=== PATIENT | female | born 1955 | race Hispanic/Latino ===

== ENCOUNTER → 2020-04-02 | Day surgery (SDC) | payer OTHER ==
[2020-03-28 10:08] LABS: BASOPHILS % 0.7 % (0.0-1.0); EOSINOPHILS # (AUTO) 0.1 (0.0-0.4); EOSINOPHILS % 1.7 % (0.0-6.0); HEMATOCRIT 44.9 % (34.2-44.1); HEMOGLOBIN 14.2 g/dL (12.0-16.0); LYMPHOCYTES # (AUTO) 1.8 (1.0-3.2); LYMPHOCYTES % 32.7 % (18.0-39.1); MEAN CORPUSCULAR HEMOGLOBIN 28.1 pg (28-32); MEAN CORPUSCULAR HGB CONC 31.6 g/dL (31-35); MEAN CORPUSCULAR VOLUME 88.7 fL (81-99); MONOCYTES # (AUTO) 0.3 (0.2-0.8); MONOCYTES % 5.9 % (4.4-11.3); NEUTROPHILS # (AUTO) 3.2 (2.1-6.9); NEUTROPHILS % 58.8 % (38.7-80.0); PLATELET COUNT 235 x10e3/uL (140-360); RED BLOOD COUNT 5.06 x10e6/uL (3.6-5.1); RED CELL DISTRIBUTION WIDTH 13.3 % (11.7-14.4)
[~2020-04-02] MED LIST: ACETAMINOPHEN 1000 MG/100 ML 100 ML IV ONE; ALENDRONATE SOD35 MG PO; CEFAZOLIN SOD 1 GM/NS 50ML 100 ML IV ONE; CRESTOR10 MG PO; DEXAMETHASONE SOD PHOS INJ 4 MG/ML VIAL ONE; EPINEPHRINE 1 MG/ML 30ML VIAL ONE; FENTANYL CITRATE/PF 100MCG/2 ML INJ ONE; FLUTICASONE P15.8 ML; HYDROCODONE/APAP 5MG-325MG TAB ONE; KETOROLAC TROMETHAMINE 30 MG/ML VIAL ONE; LEVOCETIRIZINE D5 MG PO; LIDOCAINE HCL 2% LOCAL INJ 5 ML SDV VIAL INJ ONE; MONTELUKAST SOD10 MG PO; ONDANSETRON HCL INJ 2MG/ML 2ML 2 MG/ML VIAL ONE; PROPOFOL IV EMULSION 10 MG/ML 20 ML VIAL ONE; ROCURONIUM BROMIDE 10 MG/ML 5ML VIAL IV ONE; SEVOFLURANE INHAL SOLN 250 ML PEN BTL ONE
[2020-04-02 11:25] VITALS: BP 123/56
--- NOTE | 2020-04-02 20:00 | Operative Report ---
DATE OF PROCEDURE: 04/02/2020 SURGEON: HARSHIL LORENZO MD PLACE OF SURGERY: [facility]. HISTORY: This is a 64-year-old female with ongoing complaints of pain of her right shoulder secondary to underlying right shoulder rotator cuff and labral symptoms along with shoulder impingement. The patient wished to forgo any further conservative treatment and proceed on with a right shoulder arthroscopy. The risks and benefits of surgery have been outlined to her in the Orthopedic Clinic as well as again prior to her surgery in the preoperative holding area consisting, but not limited to the following infection, blood loss, nerve, blood vessel, tendon injury, DVT, ongoing pain, stiffness. The patient's right shoulder was marked by myself and she agreed. The patient was then given a regional block per anesthesia and then brought back to the operative suite. A time-out was taken for Ms. Mylene Perez for diagnostic arthroscopy of her right shoulder. All were in agreement including nursing staff, anesthesia and myself. The patient was then given a successful general intubation anesthetic and then transferred over to the operative table. The patient was then placed in the beach chair position with the patient's cervical neck and intubation tube were secured. The right shoulder was then sterilely prepped and draped in the usual sterile fashion. The shoulder was inflated with 30 mL of sterile saline. A posterior portal was made using a 15 Bard-Elio blade and blunt trocar was inserted, and the camera was inserted. Upon examination of the anterior compartment, the biceps tendon was found to be intact. However, she did have some marked underlying synovitis throughout the entire compartment as well as the biceps labral anchor attachment. An anterior working portal was made localizing the anterior portal using an 18-gauge needle. Trocar was inserted. Upon which time, the villonodular synovitis was then resected and removed using an Arthrex 4.0 shaver. The labrum had type 1 fraying along the peripheral edges as well as along the inferior aspect and the labral debridement was carried out, taken all the way down to a smooth contoured surface using the Arthrex shaver as well as arthroscopic Arthrex wand probe. Upon probing, the labrum was found to be intact and stable. The rotator cuff tear was identified. It was close to junction of the rotator cuff insertion with minimal retraction. The tear was debrided. Examination of the subacromial space shows some marked impingement with arthrosis of the AC joint with marked narrowing of the subacromial space. A lateral portal was made and an arthroscopic subacromial decompression was carried out using the 4.0 shaver and a bur through both the posterior and lateral portal and an arthroscopic acromioplasty, i.e., cervical decompression was completed. Attention was then turned to the distal clavicle and degenerative AC meniscus. An arthroscopic distal clavicle resection was carried out removing approximately 1 cm of the distal clavicle in conjunction with degenerative meniscus using the 4.0 shaver and bur and Arthrex wand. The underlying villonodular synovitis was removed using the 4.0 shaver as well. Attention was then redirected back to the rotator cuff tear. Again, the rotator cuff tear was identified and localized. Upon which time, a small incision was made directly over the tear. The deltoid was then retracted and identification of the rotator tear was identified. The bony bed was abraded. Upon which time, a single Mitek 6.5 Healix anchor was deployed after the punch was completed. The 2 pairs of the suture limbs were passed through the rotator cuff tendons reattaching and reconstructing the tendons back down to its bone insertion. Upon range of motion testing, the repair was found to be very stable and intact. There was complete re-coverage of the humeral head. Copious irrigation was carried out of the entire wound. Final counts found to be correct. Deep layer closure was done using 1 Ethibond, 0 Vicryl, 2-0 Vicryl. Skin reapproximated using becca. The patient was placed in Xeroform compressive dressing and a shoulder abduction immobilizer was applied and the patient was successfully extubated and transferred to the PACU in stable condition. PREOPERATIVE DIAGNOSES: 1. Labral tear of the right shoulder. 2. Rotator cuff tear of the right shoulder. 3. Right shoulder impingement, AC arthrosis. POSTOPERATIVE DIAGNOSES: 1. Type 3 degenerative labral tear. 2. Villonodular synovitis of the right shoulder. 3. Right shoulder impingement with AC arthrosis. 4. Rotator cuff tear of the right shoulder. PROCEDURES: 1. Diagnostic arthroscopy of the right shoulder with a type 3 labral debridement. 2. Arthroscopic synovectomy for villonodular synovitis of the right shoulder. 3. Arthroscopic subacromial decompression, i.e. acromioplasty. 4. Arthroscopic distal clavicle resection, i.e. Wilma procedure. 5. Mini open rotator cuff repair reconstruction of the right shoulder with the use of Mitek Healix 6.5 anchor. ANESTHESIA: Regional block with general intubation anesthetic. ESTIMATED BLOOD LOSS: Less than 5 to 10 mL. SPECIMENS: Bones and soft tissue, synovium. COMPLICATIONS: None. CONDITION: Stable to PACU. The patient was seen in PACU. Dressings are clean and dry. Capillary refills were brisk. The pain is well controlled. The intraoperative findings were reviewed and discussed with her . Discharge wound care instructions were given. The patient is asked to follow up in the Orthopedic Clinic in 12 to 14 days. The patient discharged home with [place] as well as Keflex. Both the patient and the were instructed to be in a shoulder immobilizer at all times, only removing for showering. Discharge instructions was also discussed with nursing staff. Again, the patient discharged home with Keflex as well as [place]. MD ROSE BLAND/FABIANA /[id number] ROSALIND
== END | disposition home or self-care (01) ==
LOC: OR 06:57
PROVIDERS: ATTEND Orthopaedic Surgery
DX: S43.421A Sprain of right rotator cuff capsule, initial encounter (principal); S43.431A Superior glenoid labrum lesion of right shoulder, initial encounter; M19.011 Primary osteoarthritis, right shoulder; M75.51 Bursitis of right shoulder; I45.10 Unspecified right bundle-branch block; X58.XXXA Exposure to other specified factors, initial encounter; Z88.8 Allergy status to other drugs, medicaments and biological substances; Z01.810 Encounter for preprocedural cardiovascular examination; Z01.812 Encounter for preprocedural laboratory examination; Z11.59 Encounter for screening for other viral diseases; Z68.32 Body mass index [BMI] 32.0-32.9, adult
CPT/HCPCS: 23410; 29824; 36415; 85025; 93005; C1713 ×2; J0131; J0690; J1100; J1885; J2001; J2405; J2704; J3010; U0002